=== PATIENT | male | born 1990 | race Two or more races ===

== ENCOUNTER 2019-09-13 20:37 | Emergency (ER) | payer MEDICAID, OTHER ==
[~2019-09-13] VITALS: Ht 167.6 cm; Wt 57.0 kg
[2019-09-13] MEDS ORDERED: MORPHINE SULFATE 4 MG/ML CPJ (NOT FOR IM USE) IV STA (23:23)
[2019-09-13] MEDS ORDERED: ONDANSETRON HCL 4MG/2ML INJ IV STA (23:23)
[2019-09-13] MEDS ORDERED: SODIUM CHLORIDE 0.9% 1,000 ML IV ONE (23:23)
[2019-09-13] MEDS ORDERED: CLINDAMYCIN 600 MG in DEXTROSE 5% WATER 50 ML IV ONE (23:30)
[2019-09-13] MEDS ORDERED: PIPERACILLIN/TAZ 3.375G PREMIX 50 ML IV ONE (23:30)
[2019-09-13] MEDS ORDERED: CLINDAMYCIN 600MG PREMIX 50 ML IV SCH (23:59)
[2019-09-14] LABS: BASOPHILS % 0.4 % (0.0-2.0); EOSINOPHILS % 1.3 % (0.0-5.0); HEMATOCRIT. 41.1 % (42.0-52.0); HEMOGLOBIN. 13.9 g/dL (14.0-18.0); LYMPHOCYTES % 12.8 % (20.0-50.0); MEAN CORPUSCULAR VOLUME 85.9 fL (80.0-94.0); MEAN PLATELET VOLUME 9.1 fl (7.4-10.4); MONOCYTES % 10.9 % (2.0-8.0); NEUTROPHILS % 74.6 % (40.0-76.0); PLATELET 257 x1000/uL (130-400); RED BLOOD CELL COUNT 4.78 mill/uL (4.7-6.1); RED CELL DISTRIBUTION WIDTH 13.4 % (11.6-14.6)
[2019-09-14 00:11] LABS: CHLORIDE 105 mEq/L (98-107)
[2019-09-14 06:17] VITALS: BP 108/75
== END 2019-09-14 06:32 | disposition short-term general hospital (02) ==
LOC: ER 20:37
DX: L08.9 Local infection of the skin and subcutaneous tissue, unspecified (principal); R60.9 Edema, unspecified; F17.200 Nicotine dependence, unspecified, uncomplicated; F12.10 Cannabis abuse, uncomplicated
CPT/HCPCS: 36415; 73130; 80053; 83605; 85025; 85651; 86140; 87040; 96365; 96368; 96375; 99285; J2270; J2405; J2543; J3490; J7030; Z7610; J7060